=== PATIENT | female | born 1960 | race Caucasian/White ===

== ENCOUNTER 2018-07-18 07:15 | Day surgery (SDC) | payer OTHER ==
[~2018-07-18] VITALS: Ht 170.2 cm; Wt 112.3 kg
[~2018-07-18 07:15] MED LIST: METF-960 PO; SODIUM CHLORIDE 0.9% 1,000 ML IV ONE
[2018-07-18] MEDS ORDERED: MIDAZOLAM HCL 2 MG/2 ML VIAL IVP ONE (07:16)
[2018-07-18] MEDS ORDERED: SODIUM CHLORIDE 0.9% 1,000 ML IV ONE (07:43)
[2018-07-18 09:08] LABS: ANION GAP 9 mmol/L (8-16); CALCIUM, TOTAL 8.5 mg/dL (8.8-10.5); CARBON DIOXIDE 27 mmol/L (22-29); CHLORIDE 106 mmol/L (98-107); CREATININE 0.89 mg/dL (0.60-1.30); GLOMERULAR FILTR. RATE CALC > 60 mL/min (>60); GLUCOSE,RANDOM 135 mg/dL (70-110); POTASSIUM 4.1 mmol/L (3.5-5.1); SODIUM SERUM 142 mmol/L (136-145); UREA NITROGEN, BLOOD 7 mg/dL (7-18)
[2018-07-18] MEDS ORDERED: GADOBUTROL 1 MMOL/ML 10 ML VIAL IVP ONE (09:23)
== END 2018-07-18 10:40 | disposition home or self-care (01) ==
LOC: SURGERY 07:15 → EDSTATUS 09:00 → SURGERY 10:40
PROVIDERS: ATTEND Orthopaedic Surgery Hand Surgery
DX: S66.012A Strain of long flexor muscle, fascia and tendon of left thumb at wrist and hand level, initial encounter (principal); M18.12 Unilateral primary osteoarthritis of first carpometacarpal joint, left hand; M19.042 Primary osteoarthritis, left hand; M19.032 Primary osteoarthritis, left wrist; M65.842 Other synovitis and tenosynovitis, left hand; M25.842 Other specified joint disorders, left hand; I45.19 Other right bundle-branch block; E11.9 Type 2 diabetes mellitus without complications; I10 Essential (primary) hypertension; F41.8 Other specified anxiety disorders; F40.240 Claustrophobia; Z88.0 Allergy status to penicillin; Z79.84 Long term (current) use of oral hypoglycemic drugs; Z96.641 Presence of right artificial hip joint; Z98.890 Other specified postprocedural states; Z79.899 Other long term (current) drug therapy; X58.XXXA Exposure to other specified factors, initial encounter; Y93.89 Activity, other specified; Y92.89 Other specified places as the place of occurrence of the external cause; Y99.8 Other external cause status
CPT/HCPCS: 36415; 73220; 80048; 93005; 99152; 99153; A9585; J2250; J7030